=== PATIENT | male | born 1975 | race African-American/Black ===

== ENCOUNTER → 2018-04-09 | Outpatient (CLI) | payer BC ==
[~2018-04-09] MED LIST: CARVEDILOL25 MG PO; HYDRALAZINE 2525 MG PO; HYDROCHLOROTHIA25 M2 PO; POTASSIUM20 PO; PRINIVIL20 MG PO
== END ==
LOC: M.LAB 02:37
DX: Z01.812 Encounter for preprocedural laboratory examination (principal)

== ENCOUNTER → 2020-02-05 | Outpatient (CLI) | payer BC | LOC: M.LAB 15:18 | PROVIDERS: ATTEND Anesthesiology | DX: Z01.812 Encounter for preprocedural laboratory examination (principal); E87.6 Hypokalemia; Z20.828 Contact with and (suspected) exposure to other viral communicable diseases ==